=== PATIENT | male | born 1950 | race Two or more races ===

== ENCOUNTER → 2023-12-02 15:26 | Outpatient (REF) | payer MEDICARE, OTHER, SELFPAY | LOC: CLAB 15:26 | PROVIDERS: ATTENDING PHYSICIAN Specialist | DX: R97.20 Elevated prostate specific antigen [PSA] (principal) | CPT/HCPCS: 88305; 88344 ==

== ENCOUNTER → 2024-10-18 14:30 | Outpatient (REF) | payer MEDICARE, OTHER, SELFPAY | LOC: MRI 3T 14:30 | PROVIDERS: ATTENDING PHYSICIAN Specialist; FAMILY PHYSICIAN Family Medicine | DX: R97.20 Elevated prostate specific antigen [PSA] (principal) | CPT/HCPCS: 72197; A9575 ==

== ENCOUNTER → 2024-11-23 14:03 | Outpatient (REF) | payer MEDICARE, OTHER, SELFPAY | LOC: CLAB 14:03 | PROVIDERS: ATTENDING PHYSICIAN Specialist | DX: R97.20 Elevated prostate specific antigen [PSA] (principal) | CPT/HCPCS: 88305 ==